=== PATIENT | male | born 1995 | race Caucasian/White ===

== ENCOUNTER 2023-04-21 15:56 | Emergency (ER) | payer BC ==
[~2023-04-21] VITALS: Ht 185.9 cm; Wt 73.0 kg
[~2023-04-21 15:56] MED LIST: ADVIL200 MG OR; HAVRIX720 UNI1 IM; MENACTRA PO; NO HOME MEDS
[2023-04-21] MEDS ORDERED: PENICILLN VK500 MG PO (16:52)
[2023-04-21 16:54] VITALS: BP 119/75
== END 2023-04-21 17:13 | disposition home or self-care (01) | DRG 153 ==
LOC: ED 15:56
DX: J02.9 Acute pharyngitis, unspecified (principal)

== ENCOUNTER 2023-05-07 17:24 | Emergency (ER) | payer BC ==
[~2023-05-07] VITALS: Ht 190.5 cm; Wt 78.0 kg
[~2023-05-07 17:24] MED LIST changes: +PENICILLN VK500 MG PO
[2023-05-07 17:37] VITALS: BP 126/81
[2023-05-07 18:07] LABS: BASO% 0.7 % (0-3); EOS% 8.2 % (0-8); HEMATOCRIT 39.3 % (39.0-50.0); HEMOGLOBIN 13.1 g/dl (14.0-18.0); IMMATURE GRANULOCYTES 0.2 % (0.0-5.0); LYMPH% 31.4 % (15-41); MEAN CELL VOLUME 91.4 fL CALC (80.0-100.0); MEAN CORPUSCULAR HGB 30.5 pG CALC (26.0-32.0); MEAN CORPUSCULAR HGB CONC 33.3 g/dL CAL (32.0-36.0); MONO% 8.3 % (2-13); NEUT# 4.59 thou/uL (1.82-7.42); NEUT% 51.2 % (42-76); RED BLOOD COUNT 4.3 mill/uL (4.70-6.10); RED CELL DISTRI WIDTH 11.9 % (11.5-15.5)
[2023-05-07 18:08] LABS: URINE BILIRUBIN - DIPSTICK Negative (NEGATIVE); URINE BLOOD DIPSTICK Negative (NEGATIVE); URINE CLARITY Clear; URINE COLOR Yellow; URINE GLUCOSE - DIPSTICK Negative (NEGATIVE); URINE KETONE Negative (NEGATIVE); URINE LEUK ESTERASE Negative (Negative); URINE NITRITE - DIPSTICK Negative (Negative); URINE PROTEIN - DIPSTICK Negative (NEG-TRACE); URINE UROBILINOGEN - DIPSTICK 0.2 E.U./dL (0.2)
[2023-05-07 18:17] LABS: ALBUMIN 4.5 g/dL (3.2-5.0); ALKALINE PHOSPHATASE 89 u/l (38-126); ANION GAP 11 (6-22 (CALC)); BILIRUBIN, TOTAL 0.4 mg/dL (0.2-1.3); BUN 20 mg/dL (9-20); BUN/CREATININE RATIO 18 (12-20 (CALC)); CARBON DIOXIDE 28 mmol/l (22-30); CHLORIDE 105 mmol/l (95-108); CREATININE 1.1 mg/dL (0.7-1.3); GFR FOR AFR.AMER. > 60 ML/MIN (>=60 (CALC)); GFR OTHER RACES > 60 ML/MIN (>=60 (CALC)); POTASSIUM 4.1 mmol/l (3.5-5.1); SGOT/AST 32 u/l (17-59); SODIUM 140 mmol/l (137-146); TOTAL PROTEIN 7.3 g/dL (6.3-8.2)
[2023-05-07 19:20] VITALS: BP 126/81
== END 2023-05-07 19:28 | disposition home or self-care (01) | DRG 392 ==
LOC: ED 17:24
PROVIDERS: Nurse Practitioner Acute Care
DX: R10.31 Right lower quadrant pain (principal); Q60.3 Renal hypoplasia, unilateral; N18.2 Chronic kidney disease, stage 2 (mild)